=== PATIENT | female | born 1965 | race Caucasian/White ===

== ENCOUNTER 2019-05-30 09:32 | Emergency (ER) | payer OTHER ==
[~2019-05-30] VITALS: Ht 170.2 cm; Wt 136.1 kg
[2019-05-30] MEDS ORDERED: KETOROLAC TROMETHAMINE 60 MG/2 ML VIAL IM ONE (10:15)
[2019-05-30] MEDS ORDERED: ULTRAM50 MG PO (10:22)
[2019-05-30] MEDS ORDERED: NAPROSYN500 MG PO (10:23)
[2019-05-30] MEDS ORDERED: KETOROLAC TROMETHAMINE 60 MG/2 ML VIAL ONE (10:24)
--- NOTE | 2019-05-30 10:30 | NUR ---
US CALLED 30MIN ETA
--- NOTE | 2019-05-30 11:05 | Diagnostic Imaging Report ---
EXAMINATION: L SPINE 2-3 VEWS - HOPD INDICATION: Back pain, right-sided radiculopathy COMPARISON: None FINDINGS: No acute fracture. Vertebral body heights are maintained. Mild dextroconvex curvature of the lumbar spine. Alignment is otherwise normal. Moderate multilevel degenerative changes of the visualized spine with osteophyte formation. IMPRESSION: No compression fracture. Moderate lumbar spine degenerative changes. Signed by: America Hood MD on 05/30/2019 11:02 AM
--- NOTE | 2019-05-30 11:06 | NUR ---
US AT BEDSIDE WITH PATIENT
--- NOTE | 2019-05-30 11:41 | Diagnostic Imaging Report ---
EXAM: Unilateral Lower Extremity Duplex Ultrasound INDICATION: Right leg pain COMPARISON: None TECHNIQUE: Newman scale, color Doppler and spectral waveform analysis of the unilateral lower extremity deep venous system was performed. FINDINGS: Common Femoral: Fully compressible with normal spontaneous waveforms. Femoral: Fully compressible with normal spontaneous waveforms. Normal response to augmentation. Proximal Deep Femoral: Normal spontaneous waveforms. Popliteal: Fully compressible with normal spontaneous waveforms. The posterior tibial and anterior tibial veins are compressible with normal waveforms. IMPRESSION: No right lower extremity deep venous thrombosis. Signed by: America Hood MD on 05/30/2019 11:38 AM
[2019-05-30 11:59] VITALS: BP 128/70
== END 2019-05-30 12:02 | disposition home or self-care (01) ==
LOC: FSED 09:32
DX: M54.41 Lumbago with sciatica, right side (principal); M54.16 Radiculopathy, lumbar region
CPT/HCPCS: 72100; 93971; 99283; J1885